=== PATIENT | male | born 1965 | race Caucasian/White ===

== ENCOUNTER 2018-11-21 08:24 | Outpatient (RCR) | payer OTHER | END 2019-02-05 | disposition home or self-care (01) | LOC: WSOH | DX: S56.512A Strain of other extensor muscle, fascia and tendon at forearm level, left arm, initial encounter (principal); X50.3XXA Overexertion from repetitive movements, initial encounter; Y92.59 Other trade areas as the place of occurrence of the external cause; Y93.C1 Activity, computer keyboarding; Y99.0 Civilian activity done for income or pay ==